=== PATIENT | female | born 1970 | race Caucasian/White ===

== ENCOUNTER → 2018-11-21 | Outpatient (CLI) | payer MEDICAID ==
--- NOTE | 2018-11-21 15:14 | Diagnostic Imaging Report ---
PATIENT HISTORY: Primary osteoarthritis of both knees. TECHNIQUE: Three views of the right and left knees. COMPARISON: None. FINDINGS: No acute fracture or dislocation is seen in the bilateral knees. Alignment is normal. There is no joint effusion bilaterally. There is minimal degenerative change at the medial compartments. There is a small fragmented enthesophyte at the inferior right patella. IMPRESSION: 1. No acute osseous abnormality is seen in the bilateral knees. 2. Minimal degenerative changes. Fragmented enthesophyte at the inferior patella. Dictated by: Dictated on workstation # [id number]
== END ==
LOC: RAD FS 14:50
PROVIDERS: ATTEND Family Medicine
DX: M17.0 Bilateral primary osteoarthritis of knee (principal); M25.761 Osteophyte, right knee

== ENCOUNTER → 2019-01-03 | Outpatient (CLI) | payer MEDICAID ==
--- NOTE | 2019-01-03 11:00 | Diagnostic Imaging Report ---
INDICATION: Hip pain. COMPARISON: Radiographs of the right hip from the same day. TECHNIQUE: Two radiographs of the left hip are dated January 03, 2019. FINDINGS: No acute fracture or dislocation. No destructive osseous process. Minimal degenerative changes are present associated with the left hip with minimal joint space narrowing. No significant osteophytosis. The left femoral head maintains its normal shape and contour. The left sacroiliac joint and pubic symphysis appear intact. IMPRESSION: No acute osseous abnormality with minimal degenerative changes. Dictated by: Dictated on workstation # [id number]
--- NOTE | 2019-01-03 11:02 | Diagnostic Imaging Report ---
INDICATION: Low back pain and bilateral hip pain. COMPARISON: None available. FINDINGS: Normal lordosis lumbar spine. Vertebral bodies are normal in stature without fracture or ankylosis. Intervertebral disc space heights are preserved. Minimal Schmorl's nodes are noted at multiple levels within the vertebral bodies. No hypertrophic degenerative changes in the facet joints. SI joints are normal in appearance. IMPRESSION: Normal lumbar spine radiographs. Dictated by: Dictated on workstation # [id number]
--- NOTE | 2019-01-03 11:04 | Diagnostic Imaging Report ---
INDICATION: Right hip pain. TECHNIQUE: AP and oblique views of the right hip were obtained. FINDINGS: No fracture or acute bony abnormality is seen. The right hip joint space appears unremarkable. IMPRESSION: Negative right hip. Dictated by: Dictated on workstation # [id number]
== END ==
LOC: RAD FS 10:33
PROVIDERS: ATTEND Family Medicine
DX: M25.551 Pain in right hip (principal); M25.552 Pain in left hip; M54.5 Low back pain
CPT/HCPCS: 72100; 73502

== ENCOUNTER → 2019-11-24 | Outpatient (CLI) | payer MEDICAID ==
--- NOTE | 2019-11-24 12:11 | Diagnostic Imaging Report ---
EXAMINATION: AP supine abdomen INDICATION: Left flank pain and hematuria. History of kidney stones. COMPARISON: Hip and lumbar spine radiographs performed on 01/03/2019. FINDINGS: The lateral aspects of both sides of the abdomen are excluded from the [id number]. There is a nonobstructive bowel gas pattern. Scattered gas and stool is noted throughout the colon. No unusual stool burden. A nonspecific nondilated loop of gas-filled small bowel is demonstrated in the lower right abdomen just to the right of the lumbar spine. Multiple phleboliths overlie the left hemipelvis, similar in appearance to prior hip radiographs. No calcifications are appreciated in the expected regions of the kidneys or ureters. There is no evidence of pneumoperitoneum on this supine study. The visualized lung bases are clear. No acute osseous abnormality is identified. IMPRESSION: Limited exam, with partial exclusion of the lateral portions of the abdomen. There is a nonobstructive bowel gas pattern. No findings to suggest an acute abdominal process, and no calcification is appreciated to suggest nephrolithiasis. Report given to nurse (Justo) at 12:10 p.m. 11/24/2019/cb Dictated by: Dictated on workstation # [id number]
[2019-11-24 12:24] LABS: ALANINE AMINOTRANSFERASE 14 U/L (0-55); ALBUMIN 4.3 GM/DL (3.2-4.5); ALKALINE PHOSPHATASE 70 U/L (40-136); BILIRUBIN,TOTAL 0.4 MG/DL (0.1-1.0); BUN/CREATININE RATIO 20; CARBON DIOXIDE 23 MMOL/L (21-32); CHLORIDE 101 MMOL/L (98-107); CREATININE SERUM 0.69 MG/DL (0.60-1.30); GFR ESTIMATED > 60; GLUCOSE 183 MG/DL (70-105); POTASSIUM 4.5 MMOL/L (3.6-5.0); SODIUM 138 MMOL/L (135-145); TOTAL PROTEIN 7.6 GM/DL (6.4-8.2)
[2019-11-24 12:40] LABS: BAND NEUTROPHILS 5 %; BASOPHILS # (AUTO) 0.1 10^3/uL (0.0-0.1); BASOPHILS % (AUTO) 1 % (0-10); EOSINOPHILS # (AUTO) 0.2 10^3/uL (0.0-0.3); EOSINOPHILS % (AUTO) 2 % (0-10); HEMATOCRIT 39 % (35-52); HEMOGLOBIN 13.3 G/DL (11.5-16.0); LYMPHOCYTES # (AUTO) 1.3 X 10^3 (1.0-4.0); LYMPHOCYTES % (AUTO) 12 % (12-44); MEAN CORPUSCULAR HEMOGLOBIN 27 PG (25-34); MEAN CORPUSCULAR HGB CONC 34 G/DL (32-36); MEAN CORPUSCULAR VOLUME 81 FL (80-99); MEAN PLATELET VOLUME 8.6 FL (7.4-10.4); MONOCYTES # (AUTO) 0.4 X 10^3 (0.0-1.0); MONOCYTES % (AUTO) 4 % (0-12); NEUTROPHILS % (AUTO) 82 % (42-75); NEUTROPHILS % (MANUAL) 76 %; PLATELET COUNT 285 10^3/uL (130-400); RED CELL DISTRIBUTION WIDTH 14.3 % (10.0-14.5)
[2019-11-24 12:41] LABS: BASOPHILS % (MANUAL) 0 %; EOSINOPHILS % (MANUAL) 0 %; LYMPHOCYTES % (MANUAL) 14 %; MONOCYTES % (MANUAL) 5 %; RBC MORPH NORMAL
== END ==
LOC: LAB FS 11:43
PROVIDERS: ATTEND Nurse Practitioner
DX: R31.9 Hematuria, unspecified (principal); R10.9 Unspecified abdominal pain
CPT/HCPCS: 36415; 74018; 80053; 85007; 85027

== ENCOUNTER → 2023-02-04 | Outpatient (CLI) | payer MEDICAID | LOC: CARDFS 09:00 | PROVIDERS: ATTEND Family Medicine | DX: I51.7 Cardiomegaly (principal) | CPT/HCPCS: 93306 ==